=== PATIENT | male | born 1985 | race Caucasian/White ===

== ENCOUNTER 2020-10-28 06:50 | Emergency (ER) | payer BC, MEDICAID, OTHER ==
[~2020-10-28] VITALS: Ht 170.2 cm; Wt 83.8 kg
--- NOTE | 2020-10-28 07:14 | NUR ---
PT AMBULATORY TO ROOM FROM TRIAGE, CHANGED INTO GOWN, MONITORS IN PLACE. PT C/O RUQ PAIN WITH N/V SINCE LAST NIGHT. PT DENIES ANY OTHER SYMPTOMS AT THIS TIME. CALL LIGHT WITHIN REACH.
--- NOTE | 2020-10-28 07:17 | NUR ---
pa at bs
[2020-10-28] MEDS ORDERED: ONDANSETRON 2MG/ML, 2ML ONE (07:23)
[2020-10-28] MEDS ORDERED: FAMOTIDINE 20 MG/2 ML ONE (07:24)
[2020-10-28] MEDS ORDERED: ONDANSETRON 2MG/ML, 2ML IVPush ONE (07:30)
[2020-10-28] MEDS ORDERED: FAMOTIDINE 20 MG/2 ML IVPush ONE (07:30)
[2020-10-28] MEDS ORDERED: SODIUM CHLORIDE FLUSH 10ML SYR IVF ONE (07:30)
[2020-10-28] MEDS ORDERED: SODIUM CHLORIDE 0.9% 1,000ML IVBOLUS ONE (07:30)
--- NOTE | 2020-10-28 07:40 | NUR ---
Unable to establish piv access on pt. ERP aware.
[2020-10-28] MEDS ORDERED: PROMETHAZINE 25 MG/ML, 1ML ONE (07:49)
--- NOTE | 2020-10-28 07:54 | NUR ---
PT MEDICATED PER EMAR, NADN/VSS. CALL LIGHT WITHIN REACH, BED RAILS UP X2.
[2020-10-28] MEDS ORDERED: PROMETHAZINE 25 MG/ML, 1ML IM ONE (08:00)
[2020-10-28 08:05] LABS: ALANINE AMINOTRANSFERASE 20 U/L (12-78); ALBUMIN 4.1 g/dL (3.4-5.0); ANION GAP 9 mmol/L (5-15); CALCIUM 9.8 mg/dL (8.5-10.1); CHLORIDE 109 mmol/L (98-107); CREATININE 0.85 mg/dL (0.7-1.3)
[2020-10-28 08:07] LABS: BASOPHILS % (AUTO) 0 % (0-1); EOSINOPHILS % (AUTO) 0 % (1-7); LYMPHOCYTES % (AUTO) 12 % (22-44); MEAN CORPUSCULAR HEMOGLOBIN 27.9 pg (27.5-34.5); MEAN CORPUSCULAR HGB CONC 34.6 g/dL (33.2-36.2); MEAN PLATELET VOLUME 7.6 fL (7.4-10.4); MONOCYTES % (AUTO) 3 % (2-9); NEUTROPHILS % (AUTO) 84 % (42-75); PLATELET COUNT 286 x10^3/uL (130-400); RED CELL DISTRIBUTION WIDTH 13.6 % (9.4-14.8)
[2020-10-28 08:24] LABS: ALKALINE PHOSPHATASE 46 U/L (45-117); TOTAL PROTEIN 7.9 g/dL (6.4-8.2)
[2020-10-28 08:38] LABS: MICROSCOPIC AUTO
--- NOTE | 2020-10-28 08:49 | NUR ---
REPORT FROM DAVIDA, ASSUME CARE OF PT AT THIS TIME.
--- NOTE | 2020-10-28 09:15 | NUR ---
PT PROVIDED WATER FOR PO CHALLENGE.
--- NOTE | 2020-10-28 09:22 | NUR ---
NO ABD PAIN, N/V WITH PO CHALLENGE. ERP NOTIFIED.
[2020-10-28 09:43] VITALS: BP 122/61
== END 2020-10-28 09:48 | disposition home or self-care (01) ==
LOC: ED 09:30
DX: R11.2 Nausea with vomiting, unspecified (principal); R10.13 Epigastric pain; R19.7 Diarrhea, unspecified
CPT/HCPCS: 36415; 80053; 81001; 83690; 85025; 87086; 96372; 99283; J2550

== ENCOUNTER 2020-11-24 19:58 | Emergency (ER) | payer MEDICAID ==
[~2020-11-24] VITALS: Ht 170.2 cm; Wt 83.8 kg
[2020-11-24 22:56] VITALS: BP 131/81
== END 2020-11-25 00:36 | disposition home or self-care (01) ==
LOC: ED 23:59
DX: F11.23 Opioid dependence with withdrawal (principal); F41.9 Anxiety disorder, unspecified; R11.2 Nausea with vomiting, unspecified; R10.9 Unspecified abdominal pain
CPT/HCPCS: 36415; 80048; 82040; 85025; 96361; 96374; 99283; J2060; J7030; Q0162